=== PATIENT | male | born 1975 | race Caucasian/White ===

== ENCOUNTER 2023-09-16 13:34 | Emergency (ER) | payer OTHER, SELFPAY ==
[2023-09-16 13:36] VITALS: BP 159/100; BMI 27.9
[2023-09-16 15:01] VITALS: BP 150/99
--- NOTE | 2023-09-16 15:07 | ED.GENMED ---
History of Present Illness
General
Chief Complaint: Flank Pain
Source: patient
Time Seen by Provider: 09/16/23 14:43
Travel History
Have you had any contact with someone who has COVID-19?: No
Do you have any symptoms of coronavirus? Fever > 100 degrees, chills, cough, shortness of breath, sore throat, loss of taste or smell, muscle aches, or headache?: No
History of Present Illness
History of Present Illness:
48-year-old male with past medical history of hypertension and previous kidney stones presenting the emergency department for evaluation of left-sided flank pain that began acutely yesterday and described to be moderate to severe, nonradiating but
similar to previous episodes of kidney stones. Patient had similar pain this morning prompting him to want to come to the emergency department but states that pain has started to subside and is more of a just dull ache at this time. Patient did
note associated nausea but no other symptoms. He denies any fevers, chills, rigors, dysuria, urinary frequency/urgency or any other concerns.
Past History
Past History
ED Past Medical History: GERD, HTN, Hypercholesterolemia and Other (Hiatal hernia)
ED Past Surgical History: Other
Social History
Tobacco: Smoker
Alcohol: Daily
Drug: None
Personal: Partner
Living: with family
Employment: Employed
Family History
Family History: Other
Review of Systems
Review of Systems
All Other Systems: ROS reviewed and negative except as documented in HPI and ROS
Phy Exam
Physical Exam
Physical Exam:
GENERAL: Alert , in no apparent distress
EYE: clear conjunctiva b/l
HEAD: NCAT
ENT: o/p clr, mmm.
CARDIAC: Regular rate and rhythm .
LUNGS: Clear breath sounds bilaterally, no acute respiratory distress, no wheezes/rales/rhonchi
ABDOMEN: Soft, without focal tenderness, no r/g, no cvat
NEUROLOGICAL: Alert and oriented
SKIN: Warm and dry, skin intact.
MUSCULOSKELETAL: well perfused.
PSYCH: Normal and appropriate interaction.
Scores
Heart Failure Risk
Heart Failure Risk Score: Not Applicable
Heart Score for Chest Pain Patients
STEMI patient?: Not applicable
Withdrawal Assessment of Alcohol
Withdrawal Assessment Completed?: Not applicable
Course
Orders/Labs/Results
Orders:
Orders
09/16/23 14:50
CT Abd/pel Without Iv Or Oral Urgent
Comment:
Reason For Exam: left flank pain, hx stones
09/16/23 15:12
Complete Blood Count/With Diff Urgent
Comprehensive Metabolic Panel Urgent
Lipase Urgent
09/16/23 15:13
Urinalysis Reflex To Culture Urgent
Date Specimen was Collected: 09/16/23
Time Specimen was Collected: 14:58
Abnormal Lab Results
09/16/23
15:12
RBC 4.22 L 10^6/uL
(4.70-6.10)
Hct 37.1 L %
(39.0-52.0)
MCH 31.5 H pg
(27.0-31.0)
ALT 54 H U/L
(0-50)
09/16/23 15:12
09/16/23 15:12
Vital Signs
Initial and Last Documented VS:
Initial Vital Signs
Temp Pulse Resp BP Pulse Ox
98.7 F 78 16 159/100 100
09/16/23 13:36 09/16/23 13:36 09/16/23 13:36 09/16/23 13:36 09/16/23 13:36
Last Documented Vital Signs
Temp Pulse Resp BP Pulse Ox
98.7 F 73 16 134/95 99
09/16/23 13:36 09/16/23 16:18 09/16/23 16:18 09/16/23 16:18 09/16/23 16:18
MDM/Problems Addressed
Differential Diagnosis Includes:
Renal/ureteral colic, urinary tract infection, pyelonephritis, muscle strain
MDM/Problems Addressed:
48-year-old male presenting emergency department for evaluation of left flank pain that he states felt similar to previous kidney stones. Pain now improved although still a dull ache. Patient states he does not want anything for pain but was
concerned for kidney stone. Will check labs, urinalysis and CT of the abdomen pelvis.
*Radiology
Radiology exam reviewed: radiology read reviewed
*Pulse Oximetry
Patient hypoxic: no
*Critical Care Note
Total Time (30-74mins, 75-104mins- exclusive of procedures): Not Applicable
Patient Management
Escalation/DeEscalation of care consider admission/obs:
Patient CT scan shows mild fullness of the left collecting system of the kidney likely representing a recently passed stone which correlates with patient's history of significantly improving symptoms. Discussed labs and CT results with the patient.
Urine unremarkable. Stable for discharge and aware of return precautions
ED Attending Note
-
Portions of this chart may have been created with voice recognition software.� Occasional wrong word or��sound alike� substitutions may have occurred due to the inherent limitations of voice recognition software.
Discharge Plan
Departure
Patient Disposition: Home (Routine Discharge)
Date of Disposition: 09/16/23
Time of Disposition: 15:58
Patient with high blood pressure during this ER visit?: Yes
Discharge Problem:
Ureteral colic
Instructions: Kidney Stones (DC)
Prescriptions:
No Action
sucralfate [Carafate] 1 gram tablet
1 g PO BID 5 Days Qty: 10 0RF
Referrals:
Mary Glynn MD [Family Provider] -
Boubacar Gilmore MD [Active] - (Urology)
Interventions
Interventions:
*Risk Screen - Suicide Last Done: 09/16/23 13:36
*General Assessment Last Done: 09/16/23 15:02
*Neglect/Abuse Screening Last Done: 09/16/23 13:36
ED- Fall Risk Assessment Last Done: 09/16/23 15:02
*ED COVID-19 Vaccine History Last Done: 09/16/23 13:36
*Nursing Disposition Last Done: 09/16/23 16:18
IH-Vxnwcu-Kwxpngmecn Assessment Last Done: 09/16/23 15:02
ED-Male Genitourinary Assessment Last Done: 09/16/23 15:02
Discharge Date and Time
Discharge Date/Time: 09/16/23 16:19
Print Language: [place]
[2023-09-16 15:30] LABS: % Basophils 0.7 % (0-2); % Eosinophils 1.4 % (0-6); % Immature Granulocytes 0.4 % (0-0.5); % Monocytes 7.2 % (1.7-9.3); % Neutrophils 55.3 % (42.2-75.2); Absolute Basophils 0.1 10^3/uL (0-0.2); Absolute Eosinophils 0.1 10^3/uL (0-0.7); Absolute Lymphocytes 2.6 10^3/uL (1.2-3.4); Absolute Monocytes 0.5 10^3/uL (0.1-0.6); Absolute Neutrophils 4.1 10^3/uL (1.4-6.5); Hematocrit 37.1 % (39.0-52.0); Hemoglobin 13.3 g/dL (13.0-18.0); Mean Corp Hgb Conc. 35.8 g/dL (33.0-37.0); Mean Corpuscular Hgb 31.5 pg (27.0-31.0); Mean Corpuscular Volume 87.9 fL (80.0-94.0); Mean Platelet Volume 9.7 fL (7.4-10.4); Nucleated Red Blood Cells % 0 % (-); Platelet Count 195 10^3/uL (130-400); Red Blood Cell Count 4.22 10^6/uL (4.70-6.10); Red Cell Dist. Width 12.1 % (11.5-14.5); White Blood Cell Count 7.4 10^3/uL (4.8-10.8)
[2023-09-16 15:53] LABS: ALT (SGPT) 54 U/L (0-50); AST (SGOT) 40 U/L (17-59); Albumin 4.4 g/dl (3.5-5.0); Alkaline Phosphatase 80 U/L (38-126); Blood Urea Nitrogen 18 mg/dl (9-20); Calcium 9.4 mg/dl (8.4-10.2); Carbon Dioxide 26 mmol/L (22-30); Chloride 103 mmol/L (98-107); Estimated Creatinine Clearance > 125 ml/min; Glucose 78 mg/dl (70-99); Potassium 4.4 mmol/L (3.5-5.1); Sodium 136 mmol/L (135-145); Total Bilirubin 0.5 mg/dl (0.2-1.3); Total Protein 6.7 g/dl (6.3-8.2); eGFR > 60.00
[2023-09-16 16:06] LABS: Urine Albumin Negative (Neg - Trace); Urine Bilirubin Negative (Negative); Urine Color Yellow; Urine Glucose Negative (Negative); Urine Ketone Negative (Negative); Urine Leukocyte Negative (Negative); Urine Nitrite Negative (Negative); Urine Occult Blood Negative (Negative); Urine Urobilinogen Negative (Neg - 1+)
[2023-09-16 16:07] LABS: Urine Character Clear (Clear)
[2023-09-16 16:18] VITALS: BP 134/95
[2023-09-16 16:25] LABS: Lipase 69 U/L (23-300)
== END 2023-09-16 16:19 | disposition home or self-care (01) ==
LOC: EMR 13:34
PROVIDERS: Physician Assistant Medical; EMERGENCY PHYSICIAN Emergency Medicine; FAMILY PHYSICIAN Student in an Organized Health Care Education/Training Program
DX: N20.1 Calculus of ureter (principal); I10 Essential (primary) hypertension; Z87.442 Personal history of urinary calculi
CPT/HCPCS: 99284; 74176; 80053; 81003; 83690; 85025